=== PATIENT | female | born 1945 | race African-American/Black ===

== ENCOUNTER 2018-09-13 16:44 | Emergency (ER) | payer BC ==
[~2018-09-13] VITALS: Ht 160 cm; Wt 68.0 kg
[2018-09-13 16:52] VITALS: BP 155/69
[2018-09-13] MEDS ORDERED: PREDNISOLO15 MG/5 M1 ORAL (16:54)
[2018-09-13 18:52] VITALS: BP 159/75
--- NOTE | 2018-09-13 18:57 | Emergency Room Report ---
History of Present Illness General Chief Complaint: Pain Source: Patient Present Illness HPI 73-year-old female with history of hypertension controlled with unknown medication, here complaining of pain in left ankle after making the wrong move and walking today. 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 Patient reports that she was about to go inside a store as she missed a step and was about to fall to people caught her from the side and she felt pain in left ankle radiating to left calf. Is rating the pain had 10 out of 10 with radiation. Has not taken any medication for pain. Denies tingling numbness. Denies chest pain, S OB, palpitation,dizziness, and all other associated symptoms. denies all other injuries. Allergies: Coded Allergies: No Known Allergies (Unverified , 09/13/18) Patient History Past Medical History: see triage record Past Surgical History: none Pertinent Family History: none Reviewed Nursing Documentation: PMH: Agreed; PSxH: Agreed Nursing Documentation-PMH Past Medical History: No History, Except For Hx Cardiac Problems: No - eye problem Review of Systems All Other Systems: negative except mentioned in HPI Physical Exam Vital Signs Date Time Temp Pulse Resp B/P (MAP) Pulse Ox O2 Delivery O2 Flow Rate FiO2 09/13/18 16:49 98.2 65 16 155/69 96 Room Air Sp02 EP Interpretation: reviewed, normal General Appearance: normal inspection, well appearing, no apparent distress Head: normocephalic, atraumatic Eyes: bilateral eye normal inspection, bilateral eye PERRL ENT: normal ENT inspection, normal pharynx Neck: normal inspection, full range of motion, supple Respiratory: normal inspection, chest non-tender, no rhonchi Cardiovascular #1: normal inspection, regular rate, rhythm, no murmur Cardiovascular #2: 2+ dorsalis pedis (R), 2+ dorsalis pedis (L) Gastrointestinal: normal inspection, non tender, no mass Rectal: deferred Genitourinary: no CVA tenderness Musculoskeletal: back normal, digits/nails normal, no calf tenderness, other - positive casey left achillis, tender - positive for left achillis rupture Neurologic: normal inspection, alert, oriented x3, responsive Psychiatric: normal inspection, judgement/insight normal Skin: normal inspection, normal color, no rash, warm/dry Lymphatic: normal inspection, no adenopathy Procedures Splinting Splinting : Consent: Verbal Splint: poserior short Pre-Proc Neuro Vasc Exam: normal Post-Proc Neuro Vasc Exam: normal Patient Tolerated: Well Complications: None Progress pt was given a walker Medical Decision Making PA Attestation All my diagnosis and treatment plans were reviewed ad discussed with my supervising physician Dr. Brown Diagnostic Impression: Primary Impression: Rupture of left Achilles tendon ER Course 73-year-old female with history of hypertension controlled with unknown medication, here complaining of pain in left ankle after making the wrong move and walking today. 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 Patient reports that she was about to go inside a store as she missed a step and was about to fall to people caught her from the side and she felt pain in left ankle radiating to left calf. Is rating the pain had 10 out of 10 with radiation. Has not taken any medication for pain. Denies tingling numbness. Denies chest pain, S OB, palpitation,dizziness, and all other associated symptoms. denies other injuries. Ddx considered but are not limited to: ankle sprain, ankle strain, ankle fracture, ankle contusion, achillis rupture Vital signs: are WNL, pt. is afebrile H&PE are most consistent with: achillis rupture left ankle ORDERS: left ankle MRI no contrast, posterior splint, naproxen ED INTERVENTIONS: None required at this time. Splint was ordered, extremity was vascularly and neurovascularly intact after splint was applied. pt advised to follow up with pcp and further imaging may be needed.walker was given DISCHARGE: At this time pt. is stable for d/c to home. Will provide printed patient care instructions, and any necessary prescriptions. Care plan and follow up instructions have been discussed with the patient prior to discharge. pt to follow up with ortho for operation. pt can not have anything with acetaminophen as she just had eye surgery CT/MRI/US Diagnostic Results CT/MRI/US Diagnostic Results : Imaging Test Ordered: left ankle MRI Impression FINDINGS: LIGAMENTS: Anterior talofibular: Unremarkable. Posterior talofibular: Unremarkable. Anterior tibiofibular: Unremarkable. Posterior tibiofibular: Unremarkable. Calcaneofibular: Unremarkable. Deltoid: Unremarkable. Spring: Unremarkable. Lisfranc: Unremarkable. TENDONS: Achilles: Complete tearing of the Achilles tendon with failure located approximately 5.2 cm above the distal insertion displaced tendon. There is retraction of the proximal and with resultant gap of approximately 2.4 cm. Flexor: Unremarkable. Extensor: Unremarkable. Peroneal: Unremarkable. Tibialis anterior: Unremarkable. Tibialis posterior: Unremarkable. Muscles: No focal muscular abnormalities. Fluid: See below. Sinus tarsi: No evidence for sinus Tarsi syndrome. No significant tibiotalar joint effusion. Tarsal tunnel: Unremarkable. Plantar fascia: Unremarkable. Cartilage: Unremarkable. Bones/joints: 5 mm focal osteochondral lesion at the medial talar dome. No underlying marrow edema. No other marrow signal alteration. Calcaneal enthesopathy and plantar aspect. Ankle ligaments remain intact. Soft tissues: And tendons are intact. Subcutaneous edema along the medial aspect of the foot. Other findings: No neurovascular abnormalities. 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 Mild calcaneal enthesopathy but no evidence of active plantar fasciitis. No other significant internal derangement. Last Vital Signs Date Time Temp Pulse Resp B/P (MAP) Pulse Ox O2 Delivery O2 Flow Rate FiO2 09/13/18 16:52 98.2 65 16 155/69 96 Room Air Disposition: HOME, SELF-CARE Condition: Stable Scripts Naproxen* (NAPROXEN*) 500 Mg Tablet 500 MG ORAL TWICE A DAY, #30 TAB Prov: Kamran Khalil 09/13/18 Patient Instructions: Complete Achilles Tendon Rupture Additional Instructions: ortho referral needed for operation. keep splint on use a walker or cane Kamran Khalil Sep 13, 2018 18:57
[2018-09-13] MEDS ORDERED: NAPROXEN500 M2 ORAL (18:58)
--- NOTE | 2018-09-13 19:55 | Diagnostic Imaging Report ---
EXAM: MR Left Lower Extremity Without Intravenous Contrast, Ankle CLINICAL HISTORY: TRAUMA TECHNIQUE: Multiplanar magnetic resonance images of the left ankle without intravenous contrast. COMPARISON: No relevant prior studies available. FINDINGS: LIGAMENTS: Anterior talofibular: Unremarkable. Posterior talofibular: Unremarkable. Anterior tibiofibular: Unremarkable. Posterior tibiofibular: Unremarkable. Calcaneofibular: Unremarkable. Deltoid: Unremarkable. Spring: Unremarkable. Lisfranc: Unremarkable. TENDONS: Achilles: Complete tearing of the Achilles tendon with failure located approximately 5.2 cm above the distal insertion displaced tendon. There is retraction of the proximal and with resultant gap of approximately 2.4 cm. Flexor: Unremarkable. Extensor: Unremarkable. Peroneal: Unremarkable. Tibialis anterior: Unremarkable. Tibialis posterior: Unremarkable. Muscles: No focal muscular abnormalities. Fluid: See below. Sinus tarsi: No evidence for sinus Tarsi syndrome. No significant tibiotalar joint effusion. Tarsal tunnel: Unremarkable. Plantar fascia: Unremarkable. Cartilage: Unremarkable. Bones/joints: 5 mm focal osteochondral lesion at the medial talar dome. No underlying marrow edema. No other marrow signal alteration. Calcaneal enthesopathy and plantar aspect. Ankle ligaments remain intact. Soft tissues: And tendons are intact. Subcutaneous edema along the medial aspect of the foot. Other findings: No neurovascular abnormalities. 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 Mild calcaneal enthesopathy but no evidence of active plantar fasciitis. No other significant internal derangement.
[2018-09-13 20:15] VITALS: BP 159/75
== END 2018-09-13 20:15 | disposition home or self-care (01) ==
LOC: EMR 17:08
DX: S86.012A Strain of left Achilles tendon, initial encounter (principal); X58.XXXA Exposure to other specified factors, initial encounter; Y92.9 Unspecified place or not applicable; I10 Essential (primary) hypertension; H54.7 Unspecified visual loss
CPT/HCPCS: 29515; 99283